=== PATIENT | female | born 1990 | race African-American/Black ===

== ENCOUNTER 2019-02-19 02:44 | Emergency (ER) | payer SELFPAY ==
[~2019-02-19] VITALS: Ht 160 cm; Wt 73.0 kg
[2019-02-19] MEDS ORDERED: TETANUS, DIPHTHERIA, PERTUSSIS VAC/PF 0.5ML (>7YR OLD) IM ONE (03:45)
[2019-02-19] MEDS ORDERED: BACITRACIN ZINC OINT UDPKT TOP ONE (03:45)
[2019-02-19] MEDS ORDERED: LIDOCAINE HCL/PF 1% 10 MG/ML 5ML VIAL IJ ONE (03:45)
[2019-02-19 04:54] VITALS: BP 123/62
== END 2019-02-19 04:55 | disposition home or self-care (01) ==
LOC: ER 02:44
DX: S51.812A Laceration without foreign body of left forearm, initial encounter (principal); J45.909 Unspecified asthma, uncomplicated; W01.0XXA Fall on same level from slipping, tripping and stumbling without subsequent striking against object, initial encounter; Y93.01 Activity, walking, marching and hiking; Y92.9 Unspecified place or not applicable
CPT/HCPCS: 12002; 90471; 90715; 99283; J3490

== ENCOUNTER 2019-03-05 09:39 | Emergency (ER) | payer MEDICAID ==
[~2019-03-05] VITALS: Ht 170.2 cm; Wt 82.0 kg
[2019-03-05 09:57] VITALS: BP 123/78
== END 2019-03-05 11:07 | disposition home or self-care (01) ==
LOC: ER 10:49
DX: Z48.02 Encounter for removal of sutures (principal); J45.909 Unspecified asthma, uncomplicated
CPT/HCPCS: 99281